=== PATIENT | female | born 1995 | race Two or more races ===

== ENCOUNTER 2021-12-20 18:21 | Emergency (ER) | payer OTHER ==
[~2021-12-20] VITALS: Ht 172.7 cm; Wt 73.9 kg
--- NOTE | 2021-12-20 18:30 | NUR ---
RECEVED PT 26 YRS FEMALE S/P AUSSLTED TODAY LT EYE CLOSED AND ECCHMOSSISS EXAMIN BY PROVIDER
--- NOTE | 2021-12-20 18:50 | NUR ---
BLOOD DROW BY LAB TACH
--- NOTE | 2021-12-20 19:00 | NUR ---
TO CT SCAN OF HEAD VIA GEOFF
--- NOTE | 2021-12-20 19:30 | NUR ---
HAND OFF TO CLEAR TALISHA RODRIGUEZ
[2021-12-20 19:40] LABS: CALCIUM, SERUM 8.3 mg/dL (8.5-10.1); CREATININE 0.6 mg/dL (0.6-1.3); POTASSIUM 3.3 mmol/L (3.5-5.1)
[2021-12-20 19:47] LABS: ALBUMIN 3.4 g/dL (3.4-5.0); BILIRUBIN,DIRECT 0.1 mg/dL (0.0-0.2); BILIRUBIN,TOTAL 0.2 mg/dL (0.2-1.0); TOTAL PROTEIN, SERUM 7.5 g/dL (6.4-8.2)
[2021-12-20 20:05] LABS: BASOPHILS # (AUTO) 0.1 K/uL (0.0-0.2); BASOPHILS % (AUTO) 0.6 % (0.0-2.0); EOSINOPHILS % (AUTO) 0.2 % (0.0-6.0); HEMATOCRIT 40 % (33-45); HEMOGLOBIN 13.4 g/dL (11.5-14.8); LYMPHOCYTES # (AUTO) 2.4 K/uL (0.8-4.8); LYMPHOCYTES % (AUTO) 26.5 % (20.0-44.0); MEAN CORPUSCULAR HGB CONC 34 g/dl (31.0-36.0); MEAN CORPUSCULAR VOLUME 94 fL (82-100); MONOCYTES # (AUTO) 0.4 K/uL (0.1-1.30); NEUTROPHILS # (AUTO) 6.1 K/uL (1.8-8.9); NEUTROPHILS % (AUTO) 68.7 % (43.0-81.0); PLATELET COUNT (AUTO) 298 K/uL (150-450); RED BLOOD CELL COUNT(AUTO) 4.25 MIL/uL (4.0-5.2); WHITE BLOOD COUNT (AUTO) 8.9 K/uL (4.3-11.0)
[2021-12-20] MEDS ORDERED: MORPHINE SULFATE INJ 2 MG/ML DISP.SYRIN IM ONE (20:30)
--- NOTE | 2021-12-20 20:36 | NUR ---
DR ADAMS ALLOWED PATIENT TO HAVE WATER AND SNACK.
--- NOTE | 2021-12-20 20:36 | NUR ---
URINE SPECIMEN SENT TO LAB
[2021-12-20 20:56] LABS: BILIRUBIN,URINE NEGATIVE (NEGATIVE); COLOR,URINE YELLOW (YELLOW); LEUKOCYTE ESTERASE ,URINE NEGATIVE (NEGATIVE); NITRITE, URINE NEGATIVE (NEGATIVE); PH,URINE 7.5 (5.0-8.0); PROTEIN,URINE TRACE mg/dl (NEGATIVE); UGLUCOSE NEGATIVE (NEGATIVE); UROBILINOGEN,URINE 0.2 EU/dL (0.2)
[2021-12-20 21:13] LABS: BACTERIA,URINE 1+ /HPF (None Seen); HYALINE CASTS, URINE Few /LPF (None Seen); RBC,URINE 0-2 /HPF (0-2); SQUAMOUS EPITHELIAL CELL,UR Few /HPF (None Seen); URINE AMORPHOUS PHOSPHATES Moderate /HPF (None Seen); WBC,URINE 0-2 /HPF (0-3)
[2021-12-20] MEDS ORDERED: MORPHINE SULFATE INJ 4 MG/ML DISP.SYRIN ONE (21:20)
[2021-12-20] MEDS ORDERED: ACET-907 PO (22:59)
--- NOTE | 2021-12-20 23:49 | NUR ---
Patient discharged to home in stable condition. Written and verbal after care instructions given. Patient verbalizes understanding of instruction.
[2021-12-20 23:50] VITALS: BP 124/72
== END 2021-12-20 23:50 | disposition home or self-care (01) ==
LOC: ER 18:26
DX: S02.32XA Fracture of orbital floor, left side, initial encounter for closed fracture (principal); F10.129 Alcohol abuse with intoxication, unspecified; Y09 Assault by unspecified means; Y93.89 Activity, other specified; Y92.89 Other specified places as the place of occurrence of the external cause; Y99.8 Other external cause status; Y90.3 Blood alcohol level of 60-79 mg/100 ml
CPT/HCPCS: 36415; 70450; 70486; 80048; 80076; 80307; 80320; 81001; 84703; 85025; 96372; 99284; J2270; G0480